=== PATIENT | female | born 1995 | race Two or more races ===

== ENCOUNTER 2024-11-05 12:45 | Emergency (ER) | payer MEDICAID ==
[~2024-11-05] VITALS: Ht 157.5 cm; Wt 116.0 kg
--- NOTE | 2024-11-05 13:48 | ED.PDOC ---
Дмитрий. trauma (HPI) HPI Comments Pt w/ no medical hx presents for a fall 3 days ago Tripped over her feet and sustained pain to the right ribs making it difficult to sleep. Denies chest pain shortness of breath Denies hitting her head Chief Complaint: Fall Injury Time Seen by MD: 12:54 Reviewed notes: Nurses Notes, Medications, Allergies Allergies: Coded Allergies: NO KNOWN ALLERGIES (Unverified , 11/05/24) Information Source: Patient Mode of Arrival: Ambulatory All Other Systems: Reviewed and Negative (PER HPI) Physical Exam General Appearance: No Apparent Distress, Normal HEENT: Normal ENT Inspection, Pharynx Normal, TMs Normal Neck: Full Range of Motion, Non-Tender, Normal, Normal Inspection Respiratory: Chest Non-Tender, Lungs Clear, No Accessory Muscle Use, No Respiratory Distress, Normal Breath Sounds Cardiovascular: No Edema, No JVD, No Murmur, No Gallop, Normal Peripheral Pulses, Regular Rate/Rhythm Breast Exam: Deferred Gastrointestinal: No Organomegaly, Non Tender, No Pulsatile Mass, Normal Bowel Sounds, Soft Genitalia: Deferred Pelvic: Deferred Rectal: Deferred Extremities: No calf tenderness, Normal capillary refill, Normal inspection, Normal range of motion, Non-tender, No pedal edema Musculoskeletal : Apperance: Normal Neurologic: Alert, supervisor display fabrication II-XII nml as Tested, No Motor Deficits, Normal Affect, Normal Mood, No Sensory Deficits Cerebellar Function: Normal Reflexes: Normal Skin: Dry, Normal Color, Warm Lymphatic: No Adenopathy Was a procedure done? Was a procedure done?: No Differential Diagnosis Multiple Trauma: Fractures, Abrasions, Contusion X-Ray, Labs, Meds, VS Vital Signs Date Time Temp Pulse Resp B/P (MAP) Pulse Ox O2 Delivery O2 Flow Rate FiO2 11/05/24 12:46 98.8 77 18 151/69 98 98.8 X-Ray, Labs, Meds, VS Comment ED workup: Defer further imaging and lab work for outpatient follow up at this time Disposition: Discharge. Strict return precautions discussed with the patient with full understanding. Supportive care advised (rest, ice, heat, NSAIDs, stretching exercises) Massage muscles with cold pack or ice for 20 minutes 4 times per day. Usually most useful if there is swelling during the first 48 hours Heating pad on the most painful area for 20 minutes to relieve muscle spasm Sleep and the most comfortable sleeping position (usually on the side with knees bent) Light stretching, no strenuous activity, avoid frequent bending, avoid carrying heavy objects Discussed possible benefits of yoga and acupuncture On reevaluation, patient had symptomatic improvement. Patient is stable for discharge at this time. External notes reviewed. Test results and diagnostic imaging interpreted. All diagnostic findings, discharge care, education and instructions provided Follow-up with PCP in 2 to 3 days Patient verbalized understanding and agreed to treatment plan Vital signs stable, afebrile, no acute distress noted Patient ambulatory with strong steady gait Advised to return precautions for any new or worsening symptoms, return to ER immediately for re-evaluation Patient is aware that the purpose of this visit was for an acute medical emergency requiring emergent stabilization. Chronic conditions, including malignancies have not been ruled out. Patient is instructed to follow up with PCP as directed and discharge instructions for continued care and workup. If unable to arrange follow-up, patient is to return to the emergency department for reassessment. Patient (parent or legal guardian if applicable) was given verbal and written discharge instructions and acknowledges understanding. Time of 1ST Reevaluation: 15:14 Reevaluation 1ST: Improved Patient Education/Counseling: Diagnosis, Treatment Family Education/Counseling: Diagnosis, Treatment Departure 1 Departure Time of Disposition: 15:14 Impression: Primary Impression: Fall Qualified Codes: W19.XXXA - Unspecified fall, initial encounter Additional Impression: Rib pain Disposition: HOME / SELF CARE / HOMELESS Condition: Stable e-Prescriptions Naproxen (Naproxen) 375 Mg Tab 1 TAB PO BID for 10 Days, #20 TAB 0 Refills Prov: LENNY CONRAD NP 11/05/24 Discharged With: Self Critical Care Note Critical Care Time?: No Stability Stability form required: No Heart Score Heart Score: Heart Score Response (Comments) Value History N/A 0 EKG N/A 0 Age N/A 0 Risk Factors N/A 0 Troponin N/A 0 Total 0 LENNY CONRAD NP Nov 05, 2024 13:48
--- NOTE | 2024-11-05 14:58 | DVH ---
CLINICAL HISTORY: Rule out fracture. No other clinical information provided. TECHNIQUE: Frontal view of the chest and AP and oblique views of the right ribs were obtained. COMPARISON: None FINDINGS: Low lung volumes. No focal consolidation, pneumothorax, or pleural effusion. Cardiac and m ediastinal contours are within normal limits in size. Pulmonary vasculature is normal. No acute fract ure visualized in the right ribs. IMPRESSION: 1. No evidence of acute disease in the chest. 2. No acute fracture identified in the right ribs. Correlate with clinical findings.
[2024-11-05] MEDS ORDERED: NAPR-957 PO (15:15)
[2024-11-05 15:21] VITALS: BP 142/64; PULSE 77; RESP 17; TEMP 98.4; O2SAT 98
== END 2024-11-05 15:28 | disposition home or self-care (01) ==
LOC: ER 12:45
DX: R07.81 Pleurodynia (principal); W01.10XA Fall on same level from slipping, tripping and stumbling with subsequent striking against unspecified object, initial encounter; Y93.89 Activity, other specified; Y92.89 Other specified places as the place of occurrence of the external cause; Y99.8 Other external cause status
CPT/HCPCS: 71101